=== PATIENT | male | born 1970 | race Caucasian/White ===

== ENCOUNTER 2020-10-25 17:06 | Emergency (ER) | payer OTHER ==
[~2020-10-25 17:06] MED LIST: AUGMENTIN 875-1 EACH PO; IBUPROFEN800 MG PO
[2020-10-25] MEDS ORDERED: HYDROCODON-ACE1 EAC2 PO (19:01)
[2020-10-25] MEDS ORDERED: CYCLOBENZAPRINE10 MG PO (19:01)
== END 2020-10-25 19:08 | disposition home or self-care (01) ==
LOC: FER 17:06
DX: S16.1XXA Strain of muscle, fascia and tendon at neck level, initial encounter (principal); S00.12XA Contusion of left eyelid and periocular area, initial encounter; S00.81XA Abrasion of other part of head, initial encounter; R20.2 Paresthesia of skin; W01.10XA Fall on same level from slipping, tripping and stumbling with subsequent striking against unspecified object, initial encounter; Y92.009 Unspecified place in unspecified non-institutional (private) residence as the place of occurrence of the external cause
CPT/HCPCS: 70450; 70486; 72125; 72131